=== PATIENT | male | born 1950 | race African-American/Black ===

== ENCOUNTER 2017-03-19 10:33 | Emergency (ER) | payer BC, MEDICARE ==
[~2017-03-19 10:33] MED LIST: CLON1PAT TD
[2017-03-19 10:51] VITALS: BP 161/89
[2017-03-19] MEDS: methylPREDNISolone SOD SUCC PF 125 MG/2 ML VIAL. IM ONE (11:06)
--- NOTE | 2017-03-19 11:06 | PHYS DOC ---
Past Medical History Past Medical History: Hypertension Past Surgical History: Other Additional Past Surgical Histo: right knee Alcohol Use: Occasionally Drug Use: None Adult General Chief Complaint Chief Complaint: COUGH HPI HPI Patient is a 66 year old male presents the ED complaining of cough 5 days. Associated symptoms include sore throat and nasal congestion. Describes as sharp , productive and rates as 6/10. History of pack a day smoker, quit 2 months ago. Denies headache, fever, nausea/vomiting, abdominal pain, chest pain, or dizziness. Review of Systems Review of Systems Constitutional: Denies fever or chills [] Eyes: Denies change in visual acuity, redness, or eye pain [] HENT: Complains of sore throat and nasal congestion.[] Respiratory: Complains of cough. Denies shortness of breath [] Cardiovascular: No additional information not addressed in HPI [] GI: Denies abdominal pain, nausea, vomiting, bloody stools or diarrhea [] : Denies dysuria or hematuria [] Musculoskeletal: Denies back pain or joint pain [] Integument: Denies rash or skin lesions [] Neurologic: Denies headache, focal weakness or sensory changes [] Endocrine: Denies polyuria or polydipsia [] Current Medications Current Medications Current Medications Medications (Trade) Dose Ordered Sig/Iman Start Time Stop Time Status Last Admin Dose Admin Albuterol/ Ipratropium (Duoneb) 3 ml 1X ONCE 03/19/17 11:00 03/19/17 11:01 DC 03/19/17 11:09 3 ML Methylprednisolone Sodium Succinate (SOLU-Medrol 125MG VIAL) 125 mg 1X ONCE 03/19/17 11:00 03/19/17 11:01 DC 03/19/17 11:06 125 MG Allergies Allergies Allergies Coded Allergies Type Severity Reaction Last Updated Verified No Known Drug Allergies 12/29/13 No Physical Exam Physical Exam Constitutional: Well developed, well nourished, no acute distress, non-toxic appearance. [] HENT: Normocephalic, atraumatic, bilateral external ears normal, oropharynx moist, no oral exudates, nose normal. [] Eyes: PERRLA, EOMI, conjunctiva normal, no discharge. [] Neck: Normal range of motion, no tenderness, supple, no stridor. [] Cardiovascular:Heart rate regular rhythm, no murmur [] Lungs & Thorax: Bilateral breath sounds. MILD BILATERAL WHEEZING.[] Abdomen: Bowel sounds normal, soft, no tenderness, no masses, no pulsatile masses. [] Skin: Warm, dry, no erythema, no rash. [] Back: No tenderness, no CVA tenderness. [] Extremities: No tenderness, no cyanosis, no clubbing, ROM intact, no edema. [] Neurologic: Alert and oriented X 3, normal motor function, normal sensory function, no focal deficits noted. [] Psychologic: Affect normal, judgement normal, mood normal. [] Current Patient Data Vital Signs Vital Signs Date Time Temp Pulse Resp B/P (MAP) Pulse Ox O2 Delivery O2 Flow Rate FiO2 03/19/17 11:09 97 Room Air 03/19/17 10:51 98.8 80 20 98.8 EKG EKG [] Radiology/Procedures Radiology/Procedures PROCEDURE: CHEST PA & LATERAL Chest, 2 views, 03/19/2017: History: Pneumonia No previous chest radiographs are available at this time for comparison purposes. The heart size and pulmonary vascularity are normal. A small dense nodule in the left lung laterally is compatible with a granuloma. There are moderate bibasilar linear opacities compatible with scarring and/or atelectasis. No consolidating infiltrate is seen. There is no evidence of pleural fluid. IMPRESSION: Moderate bibasilar linear atelectasis and/or scarring.[] Course & Med Decision Making Course & Med Decision Making Pertinent Labs and Imaging studies reviewed. (See chart for details) []Discussed imaging with patient. Patient's improved after breathing treatment. Vital stable, no acute distress. Will prescribe Z-Tee, prednisone, inhaler. Discussed follow-up with patient. Provided contact information/education. Discussed reasons to return to the ED. Patient understands and agrees with plan. Dragon Disclaimer Dragon Disclaimer This electronic medical record was generated, in whole or in part, using a voice recognition dictation system. Departure Departure Impression: Primary Impression: Bronchitis Disposition: 01 HOME, SELF-CARE Condition: IMPROVED Referrals: NO PCP (PCP) Patient Instructions: Bronchitis Scripts Albuterol Sulfate (PROAIR HFA INHALER) 8.5 Gm Hfa.aer.ad 1 PUFF INH PRN Q6HRS Y for SHORTNESS OF BREATH, #1 INHALER 0 Refills Prov: JUNIOR BASURTO 03/19/17 Prednisone (PREDNISONE) 20 Mg Tablet 2 TAB PO DAILY, #10 TAB Prov: JUNIOR BASURTO 03/19/17 Azithromycin (AZITHROMYCIN TABLET) 250 Mg Tablet 1 PKG PO UD, #6 TAB Prov: JUNIOR BASURTO 03/19/17 JUNIOR BASURTO Mar 19, 2017 11:06
[2017-03-19] MEDS: IPRATRPIUM/ALBUTEROL 0.5/2.5MG 3 ML NEBU. NEB ONE (11:09)
--- NOTE | 2017-03-19 11:15 | RAD ---
Chest, 2 views, 03/19/2017: History: Pneumonia No previous chest radiographs are available at this time for comparison purposes. The heart size and pulmonary vascularity are normal. A small dense nodule in the left lung laterally is compatible with a granuloma. There are moderate bibasilar linear opacities compatible with scarring and/or atelectasis. No consolidating infiltrate is seen. There is no evidence of pleural fluid. IMPRESSION: Moderate bibasilar linear atelectasis and/or scarring.
[2017-03-19] MEDS ORDERED: PROAIR HFA8.5 GM INH (11:35)
[2017-03-19] MEDS ORDERED: AZIT250T6 PO (11:35)
[2017-03-19] MEDS ORDERED: PRED20TA PO (11:35)
== END 2017-03-19 11:43 | disposition home or self-care (01) ==
LOC: ER 10:33
DX: J40 Bronchitis, not specified as acute or chronic (principal); I10 Essential (primary) hypertension; Z87.891 Personal history of nicotine dependence
CPT/HCPCS: 71020; 94250; 94640; 96372; 99284; J2930; J7620

== ENCOUNTER 2019-10-26 12:06 | Emergency (ER) | payer BC, OTHER ==
[~2019-10-26] VITALS: Ht 172.7 cm; Wt 86.0 kg
[~2019-10-26 12:06] MED LIST changes: +ALBU2.5V8 INH; +AZIT250T6 PO; +PRED20TA PO
[2019-10-26] MEDS ORDERED: amLODIPine BESYLATE 5 MG TABLET PO ONE (12:30)
[2019-10-26] MEDS ORDERED: LABETALOL 20 MG/4 ML DISP.SYRIN. IVP ONE (13:15)
[2019-10-26 14:00] VITALS: BP 195/95
--- NOTE | 2019-10-26 14:04 | PHYS DOC ---
Past Medical History Past Medical History: Hypertension Past Surgical History: Other Additional Past Surgical Histo: right knee, inguinal hernia, prostate enlarged Smoking Status: Former Smoker Alcohol Use: Occasionally Drug Use: None General Adult EDM: Chief Complaint: HYPERTENSION HPI: HPI: Patient is a 69 year old male presents for evaluation of high blood pressure. Prior to arrival patient was at dentist office for a dental extraction initial blood pressure was taken and noted to be over 200 systolic. Patient was sent to the emergency department for evaluation. Upon presentation patient's blood pressure greater than 200 systolic. Patient denies any headache chest pain or shortness of breath. Patient states he takes Norvasc daily but did not take it this morning due to dental procedure. Review of Systems: Review of Systems: Constitutional: Denies fever or chills. [] Eyes: Denies change in visual acuity. [] HENT: Denies nasal congestion or sore throat. [] Respiratory: Denies cough or shortness of breath. [] Cardiovascular: Denies chest pain or edema. [] GI: Denies abdominal pain, nausea, vomiting, bloody stools or diarrhea. [] : Denies dysuria. [] Musculoskeletal: Denies back pain or joint pain. [] Integument: Denies rash. [] Neurologic: Denies headache, focal weakness or sensory changes. [] Endocrine: Denies polyuria or polydipsia. [] Lymphatic: Denies swollen glands. [] Psychiatric: Denies depression or anxiety. [] Heart Score: Risk Factors: Risk Factors: DM, Current or recent (<one month) smoker, HTN, HLP, family history of CAD, obesity. Risk Scores: Score 0 - 3: 2.5% MACE over next 6 weeks - Discharge Home Score 4 - 6: 20.3% MACE over next 6 weeks - Admit for Clinical Observation Score 7 - 10: 72.7% MACE over next 6 weeks - Early Invasive Strategies Current Medications: Current Medications Medications (Trade) Dose Ordered Sig/Iman Start Time Stop Time Status Last Admin Dose Admin Amlodipine Besylate (Norvasc) 5 mg 1X ONCE 10/26/19 12:30 10/26/19 12:31 DC 10/26/19 12:39 5 MG Labetalol HCl (Normodyne Iv Push) 20 mg 1X ONCE 10/26/19 13:15 10/26/19 13:16 DC 10/26/19 13:26 20 MG Allergies: Allergies: Allergies Coded Allergies Type Severity Reaction Last Updated Verified sildenafil Allergy Intermediate chest pain 10/26/19 Yes doxycycline Allergy Mild rash 10/26/19 Yes Physical Exam: PE: Constitutional: Well developed, well nourished, no acute distress, non-toxic appearance. [] HENT: Normocephalic, atraumatic, bilateral external ears normal, oropharynx moist, no oral exudates, nose normal. [] Eyes: PERRLA, EOMI, conjunctiva normal, no discharge. [] Neck: Normal range of motion, no tenderness, supple, no stridor. [] Cardiovascular:Heart rate regular rhythm, no murmur [] Lungs & Thorax: Bilateral breath sounds clear to auscultation [] Abdomen: Bowel sounds normal, soft, no tenderness, no masses, no pulsatile masses. [] Skin: Warm, dry, no erythema, no rash. [] Back: No tenderness, no CVA tenderness. [] Extremities: No tenderness, no cyanosis, no clubbing, ROM intact, no edema. [] Neurologic: Alert and oriented X 3, normal motor function, normal sensory function, no focal deficits noted. [] Psychologic: Affect normal, judgement normal, mood normal. [] Current Patient Data: Vital Signs: Vital Signs Date Time Temp Pulse Resp B/P (MAP) Pulse Ox O2 Delivery O2 Flow Rate FiO2 10/26/19 13:26 78 192/99 10/26/19 12:16 98.3 18 100 Room Air 98.3 EKG: EKG: [] Radiology/Procedures: Radiology/Procedures: [] Course & Med Decision Making: Course & Med Decision Making Pertinent Labs and Imaging studies reviewed. (See chart for details) [] Patient was initially treated with Norvasc 5 mg p.o. with minimal improvement of blood pressure. Patient was then treated with labetalol 20 mg IV push. Repeat blood pressure 175 over 90s. Patient continues to have no complaints. Patient will be discharged home. Nikkion Disclaimer: Ninoska Disclaimer: This electronic medical record was generated, in whole or in part, using a voice recognition dictation system. Departure Departure Impression: Primary Impression: Hypertension Qualified Codes: I10 - Essential (primary) hypertension Disposition: HOME, SELF-CARE Condition: STABLE Referrals: NO PCP (PCP) NKIKI MENDIETA I DO October 26, 2019 14:04
== END 2019-10-26 14:19 | disposition home or self-care (01) ==
LOC: ER 12:06
DX: I10 Essential (primary) hypertension (principal); Z98.890 Other specified postprocedural states; Z88.1 Allergy status to other antibiotic agents; Z88.8 Allergy status to other drugs, medicaments and biological substances; Z87.891 Personal history of nicotine dependence
CPT/HCPCS: 96374; 99283; J3490

== ENCOUNTER 2021-04-20 10:11 | Emergency (ER) | payer OTHER ==
[~2021-04-20] VITALS: Ht 172.7 cm; Wt 90.9 kg
--- NOTE | 2021-04-20 10:27 | PHYS DOC ---
Past Medical History Past Medical History: Hypertension Past Surgical History: Other Additional Past Surgical Histo: right knee, inguinal hernia, prostate enlarged Smoking Status: Former Smoker Alcohol Use: Occasionally Drug Use: None General Adult EDM: Chief Complaint: CHEST PAIN HPI: HPI: 70-year-old male with a previous history of pneumonia on the right side 5 years ago requiring hospitalization presents the emergency department today complaining of right-sided shoulder/rib pain that he states is worse with laying flat over the area, not associate with any cough or shortness of breath, for the past 5 days with gradual onset. He denies any further chest pain or radiation of pain away from this area. He notes the pain is very similar to when he had pneumonia in the past. He is vaccinated for COVID-19. He denies pleuritic component to his chest pain. He drives a bus for living. He has never had a blood clot before. The patient denies nausea, vomiting, fever, chills, , abdominal pain, urinary symptoms, recent trauma, or any other complaints. Review of Systems: Review of Systems: Constitutional: Negative except what was mentioned in HPI. Eyes: Negative except what was mentioned in HPI. HENT: Negative except what was mentioned in HPI. Respiratory: Negative except what was mentioned in HPI. Cardiovascular: Negative except what was mentioned in HPI. GI: Negative except what was mentioned in HPI. : Negative except what was mentioned in HPI. Musculoskeletal: Negative except what was mentioned in HPI. Integument: Negative except what was mentioned in HPI. Neurologic: Negative except what was mentioned in HPI. Heart Score: C/O Chest Pain: Yes HEART Score for Chest Pain: HEART Score for Chest Pain Response (Comments) Value History Slighlty/Non-Suspicious 0 ECG Normal 0 Age > 65 2 Risk Factors 1 or 2 Risk Factors 1 Troponin < Normal Limit 0 Total 3 Allergies: Allergies: Allergies Coded Allergies Type Severity Reaction Last Updated Verified sildenafil Allergy Intermediate chest pain 10/26/19 Yes doxycycline Allergy Mild rash 10/26/19 Yes Physical Exam: PE: Constitutional: No acute distress, non-toxic appearance. HENT: Atraumatic, bilateral external ears normal, nose normal. Eyes: Conjunctiva normal, no discharge. Neck: Normal range of motion, supple, no stridor. Cardiovascular: Heart rate regular rhythm. 2+ radial pulses and equal Lungs & Thorax: No respiratory distress, symmetrical expansion. Rhonchi heard in the midlung zone on the right, left side clear Chest wall: No reproducible chest wall tenderness to palpation, no lesions. Abdomen: Soft, no tenderness Skin: Warm, dry. Extremities: No tenderness, no cyanosis, ROM intact, no edema. Neurologic: Alert and oriented X 3, normal motor function, normal sensory function, no focal deficits noted. GCS 15. Psychologic: Affect normal, judgment normal, mood normal. Current Patient Data: Labs: Laboratory Tests Test 04/20/21 11:00 White Blood Count 9.2 x10^3/uL (4.0-11.0) Red Blood Count 4.74 x10^6/uL (4.30-5.70) Hemoglobin 13.2 g/dL (13.0-17.5) Hematocrit 40.1 % (39.0-53.0) Mean Corpuscular Volume 85 fL (79-100) Mean Corpuscular Hemoglobin 28 pg (25-35) Mean Corpuscular Hemoglobin Concent 33 g/dL (31-37) Red Cell Distribution Width 14.1 % (11.5-14.5) Platelet Count 329 x10^3/uL (140-400) Neutrophils (%) (Auto) 63 % (31-73) Lymphocytes (%) (Auto) 26 % (24-48) Monocytes (%) (Auto) 6 % (0-9) Eosinophils (%) (Auto) 5 % (0-3) Basophils (%) (Auto) 1 % (0-3) Neutrophils # (Auto) 5.8 x10^3/uL (1.8-7.7) Lymphocytes # (Auto) 2.4 x10^3/uL (1.0-4.8) Monocytes # (Auto) 0.5 x10^3/uL (0.0-1.1) Eosinophils # (Auto) 0.4 x10^3/uL (0.0-0.7) Basophils # (Auto) 0.1 x10^3/uL (0.0-0.2) Sodium Level 139 mmol/L (136-145) Potassium Level 4.4 mmol/L (3.5-5.1) Chloride Level 105 mmol/L (98-107) Carbon Dioxide Level 24 mmol/L (21-32) Anion Gap 10 (6-14) Blood Urea Nitrogen 17 mg/dL (8-26) Creatinine 1.6 mg/dL (0.7-1.3) Estimated GFR (Cockcroft-Gault) 52.1 BUN/Creatinine Ratio 11 (6-20) Glucose Level 105 mg/dL (70-99) Calcium Level 8.6 mg/dL (8.5-10.1) Total Bilirubin 0.3 mg/dL (0.2-1.0) Aspartate Amino Transf (AST/SGOT) 11 U/L (15-37) Alanine Aminotransferase (ALT/SGPT) 26 U/L (16-63) Alkaline Phosphatase 76 U/L (46-116) Troponin I High Sensitivity 103 ng/L (4-75) LU-Qjy-D-Type Natriuretic Peptide 144 pg/mL (0-124) Total Protein 8.3 g/dL (6.4-8.2) Albumin 3.3 g/dL (3.4-5.0) Albumin/Globulin Ratio 0.7 (1.0-1.7) Vital Signs: Vital Signs Date Time Temp Pulse Resp B/P (MAP) Pulse Ox O2 Delivery O2 Flow Rate FiO2 04/20/21 10:17 98.2 71 16 171/88 (115) 97 Room Air 98.2 EKG: EKG: Time read: 1020 Normal sinus rhythm rate of 75, no ST-T wave changes, no ectopic beats, normal axis, normal CO, QRS, and QTc intervals. Impression: Normal EKG. interpreted by me, Jose A Moore D.O. Radiology/Procedures: Radiology/Procedures: PROCEDURE: PORTABLE CHEST 1V XR CHEST 1V History: Reason: right sided rib pain / Spl. Instructions: / History: Comparison: March 19, 2017 Findings: Bilateral mid and lower lung linear opacities. No pleural effusion. No pneumothorax. Normal heart size. Calcified left midlung pulmonary nodule, likely prior granulomatous disease, unchanged. Impression: 1. Mild bilateral linear opacities, may represent atelectasis. If persistent clinical concern, recommend follow-up. Electronically signed by: Manav Byrd DO (04/20/2021 11:09 AM) Course & Med Decision Making: Course & Med Decision Making Patient has a well score of 0, no recent surgeries, no blood thinner use, the patient denies any history of blood clots in his legs or his lungs, no recent travel including no long trips in the car or flights, no family history of blood clots, no personal history of any cancers or clotting disorders. His x-ray was clear without signs of pneumonia, he looks well clinically and has stable vital signs. I discussed treatment options with him including NSAIDs, Tylenol, lidocaine patches [id number]. Patient has a doctor he will follow up with and he was urged to come back to the emergency department if there is any further progression of his symptoms. Pain is likely musculoskeletal in nature based on work-up today. His pain does not sound like ACS or pulmonary embolism given his risk revocation. Patient has no evidence of acute end organ damage from hypertension. I counseled the patient on their high blood pressure and the need to follow-up in the clinic to get this addressed. Departure Departure Impression: Primary Impression: Rib pain on right side Disposition: HOME / SELF CARE / HOMELESS Condition: STABLE Referrals: NO PCP (PCP) Patient Instructions: Chest Wall Pain, [id number] Additional Instructions: You were seen in the emergency department and your health condition was deemed not to require admission to the hospital. It is important to realize that we can only evaluate you during the time that you are in her department. Occasionally health conditions can worsen upon leaving the emergency department. If this were to happen, please return to and allow us the opportunity to reevaluate you. It is a pleasure to take care of your health needs. Return to the ER if your symptoms worsen, do not improve, or if you develop additional symptoms that are concerning to you You were seen in the emergency department for chest pain. Your exam and testing did not show any acute abnormality that warranted admission today but does not rule out underlying cardiovascular disease. You need to follow up with your primary doctor and/or cardiology for further evaluation. Return to the Emergency Department immediately, day or night, if you have worsening or continued chest pain, shortness of breath, nausea, sweating during chest pain, trouble breathing, chest pain with exertion (climbing stairs or walking for example), leg swelling or for any other concerns. JOSE A MOORE DO Apr 20, 2021 10:27
[2021-04-20 11:12] LABS: BASO # 0.1 x10^3/uL (0.0-0.2); BASO % 1 % (0-3); EOS # 0.4 x10^3/uL (0.0-0.7); EOS % 5 % (0-3); HEMATOCRIT 40.1 % (39.0-53.0); HEMOGLOBIN 13.2 g/dL (13.0-17.5); LYMPH # 2.4 x10^3/uL (1.0-4.8); LYMPH % 26 % (24-48); MEAN CORPUSCULAR HEMOGLOBIN 28 pg (25-35); MEAN CORPUSCULAR HGB CONC 33 g/dL (31-37); MEAN CORPUSCULAR VOLUME 85 fL (79-100); MONO # 0.5 x10^3/uL (0.0-1.1); MONO % 6 % (0-9); NEUT # 5.8 x10^3/uL (1.8-7.7); NEUT % 63 % (31-73); PLATELET COUNT 329 x10^3/uL (140-400); RED BLOOD COUNT 4.74 x10^6/uL (4.30-5.70); RED CELL DISTRIBUTION WIDTH 14.1 % (11.5-14.5); WHITE BLOOD COUNT 9.2 x10^3/uL (4.0-11.0)
--- NOTE | 2021-04-20 11:12 | RAD ---
XR CHEST 1V History: Reason: right sided rib pain / Spl. Instructions: / History: Comparison: March 19, 2017 Findings: Bilateral mid and lower lung linear opacities. No pleural effusion. No pneumothorax. Normal heart siz e. Calcified left midlung pulmonary nodule, likely prior granulomatous disease, unchanged. Impression: 1. Mild bilateral linear opacities, may represent atelectasis. If persistent clinical concern, recom mend follow-up. Electronically signed by: Manav Byrd DO (04/20/2021 11:09 AM) [id number]
[2021-04-20 11:30] LABS: CALCIUM 8.6 mg/dL (8.5-10.1); CREATININE 1.6 mg/dL (0.7-1.3); GFR 52.1; POTASSIUM 4.4 mmol/L (3.5-5.1)
[2021-04-20 11:35] LABS: ALBUMIN 3.3 g/dL (3.4-5.0); ALBUMIN/GLOBULIN RATIO 0.7 (1.0-1.7); TOTAL BILIRUBIN 0.3 mg/dL (0.2-1.0); TOTAL PROTEIN 8.3 g/dL (6.4-8.2)
[2021-04-20] MEDS ORDERED: KETOROLAC 15 MG/ML VIAL. IVP ONE (12:00)
[2021-04-20 12:55] VITALS: BP 149/76
== END 2021-04-20 12:58 | disposition home or self-care (01) ==
LOC: ER 10:11
DX: R07.81 Pleurodynia (principal); I10 Essential (primary) hypertension; Z87.891 Personal history of nicotine dependence; Z88.1 Allergy status to other antibiotic agents; Z88.8 Allergy status to other drugs, medicaments and biological substances
CPT/HCPCS: 36415; 71045; 80053; 83880; 84484; 85025; 96374; 99284; J1885